=== PATIENT | female | born 1995 | race Caucasian/White ===

== ENCOUNTER 2016-10-19 09:16 | Emergency (ER) | payer MEDICAID ==
[2016-10-19 09:45] VITALS: BP 137/91
[2016-10-19] MEDS ORDERED: HYDROmorphone 1 MG/ML Syringe IM ONE (10:15)
--- NOTE | 2016-10-19 10:26 | EDM.PDOC ---
ED HPI GI/ABDOMINAL - General Chief Complaint: Abdominal Pain Stated Complaint: FELL AT HOME Time Seen by Provider: 10/19/16 09:50 Source: Reports: Patient History Limitations: Reports: No limitations - History of Present Illness INITIAL COMMENTS - FREE TEXT/NARRATIVE: 21-year-old female who was in yesterday with abdominal pain, received an iron infusion for anemia did fine overnight but this morning stumbled forward striking her lower abdomen on the edge of the couch. She had a CT of her abdomen yesterday that showed a enteritis or possible early or partial small bowel obstruction and when she fell she heard a "pop" and now has increased pain. She looks very comfortable however. She continues to have some diarrhea , no blood in the diarrhea, no vomiting. Location: other (Pain is across her lower abdomen) Quality: Reports: cramping, stabbing - Related Data Allergies/ADRs: Allergies Allergy/AdvReac Type Severity Reaction Status Date / Time No Known Allergies Allergy Verified 10/18/16 01:51 Home Meds: Home Meds Acetaminophen [Tylenol JrJoao Vallejo] 640 mg PO Q4H PRN #100 tab.dis 10/13/13 [ Rx] Cyanocobalamin (Vitamin B-12) [Vitamin B-12] 1,000 mcg INJECT DAILY 12/16/13 [ History] Vitamin B Complex [B Complex] 1 each PO DAILY 12/16/13 [History] Ibuprofen 400 mg PO TID PRN 08/28/14 [History] Citalopram [Celexa] 10 mg PO DAILY 10/19/16 [History] Past Medical History Cardiovascular History: Reports: Other (see below) Other Cardiovascular History: hypertension when Other Gastrointestinal History: [place] 2013 [employer] History: Reports: Polycystic Ovaries, Psychiatric History: Reports: Depression Hematologic History: Reports: Anemia, B12 deficiency Immunologic History: Reports: None - Past Surgical History HEENT Surgical History: Reports: Oral surgery Cardiovascular Surgical History: Reports: None GI Surgical History: Reports: Bariatric procedure, Cholecystectomy, EGD Social & Family History - Tobacco Use Smoking Status *Q: Current Every Day Smoker Years of Tobacco use: 1 Packs/Tins Daily: 0.5 Used Tobacco, but Quit: No Second Hand Smoke Exposure: Yes - Caffeine Use Caffeine Use: Reports: Coffee, Tea - Alcohol Use Days Per Week of Alcohol Use: 0 - Recreational Drug Use Recreational Drug Use: No ED ROS GENERAL - Review of Systems Review Of Systems: See Below Constitutional: Denies: fever, chills HEENT: Reports: No symptoms Respiratory: Denies: shortness of breath GI/Abdominal: Reports: Abdominal pain, Diarrhea. Denies: Hematemesis, Hematochezia, Nausea, Vomiting : Reports: no symptoms Skin: Reports: no symptoms Neurological: Reports: no symptoms Psychiatric: Reports: No symptoms ED EXAM, GI/ABD - Physical Exam Exam: See Below Exam Limited By: No limitations General Appearance: alert, no apparent distress Eyes: bilateral: normal appearance (No jaundice) Respiratory/Chest: no respiratory distress, lungs clear GI/Abdominal: hypoactive bowel sounds, guarding (On palpation she is tender across the lower abdomen.). No: distention, rebound Course - Vital Signs Last Recorded V/S: Last Vital Signs Temp 97.8 F 10/19/16 09:50 Pulse 103 H 10/19/16 09:50 Resp 16 10/19/16 09:50 BP 137/91 H 10/19/16 09:50 Pulse Ox 91 L 10/19/16 09:50 - Orders/Labs/Meds Meds: Medications Discontinued Medications Generic Name Dose Route Start Last Admin Trade Name Freq PRN Reason Stop Dose Admin Hydromorphone HCl 1 mg 10/19/16 10:15 10/19/16 10:20 Dilaudid IM 10/19/16 10:16 1 mg ONETIME ONE Administration - Re-Assessments/Exams Free Text/Narrative Re-Assessment/Exam: 10/19/16 10:29 Vitals are all stable and the patient is actually very comfortable unless actually being palpated. I think she may have strained her lower abdominal muscles more than actual injury to the internal organs. I do not see a need to repeat a CT scan, I did discuss her situation with Dr. Moss and she will recheck with him in the next 1 to 2 days. She was given 1 mg of Dilaudid IM, and will increase diet slowly over the next 2 days. Departure - Departure Time of Disposition: 11:27 Disposition: Home, Self-Care 01 Condition: good Clinical Impression: Gastroenteritis Contusion of abdominal wall Qualifiers: Encounter type: initial encounter Qualified Code(s): S30.1XXA - Contusion of abdominal wall, initial encounter Instructions: Viral Gastroenteritis, Adult, [id number], Contusion, Easy-to- Read Referrals: Lyric Ham MD [Primary Care Provider] - Forms: ED Department Discharge Care Plan Goals: Rest today and increase activity as tolerated. Liquid diet may be beneficial for the next 12-24 hours. Return sooner if worsening or concerns. Recheck with Dr. Moss in the next 3 days if not improving satisfactorily.
== END 2016-10-19 11:15 | disposition home or self-care (01) ==
LOC: JP.ED 09:16
DX: K52.9 Noninfective gastroenteritis and colitis, unspecified (principal); S30.1XXA Contusion of abdominal wall, initial encounter; F32.9 Major depressive disorder, single episode, unspecified; F17.210 Nicotine dependence, cigarettes, uncomplicated; Z98.49 Cataract extraction status, unspecified eye; Z90.49 Acquired absence of other specified parts of digestive tract; Z79.899 Other long term (current) drug therapy; W22.8XXA Striking against or struck by other objects, initial encounter
CPT/HCPCS: 96372; 99284; J1170

== ENCOUNTER 2016-11-28 07:43 | Day surgery (SDC) | payer MEDICAID ==
[~2016-11-28 07:43] MED LIST: Midazolam 1 MG/ML 2 ML SDV ONE; Propofol 200 MG/20 ML SDV ONE; fentaNYL 100 MCG/2 ML SDV ONE
[2016-11-28] MEDS ORDERED: Lactated Ringers 1,000 ML IV SCH (08:30)
[2016-11-28] MEDS ORDERED: Cyanocobalamin (Vitamin B12) 1,000 MCG/ML SDV IM ONE (08:30)
[2016-11-28] MEDS ORDERED: fentaNYL 100 MCG/2 ML SDV ONE (08:54)
[2016-11-28] MEDS ORDERED: Propofol 200 MG/20 ML SDV ONE (08:54)
[2016-11-28] MEDS ORDERED: Midazolam 1 MG/ML 2 ML SDV ONE (08:54)
[2016-11-28] MEDS ORDERED: Glycopyrrolate 0.2 MG/ML 2 ML SYRINGE IVPUSH ONE (09:00)
[2016-11-28] MEDS ORDERED: MVI, Adult with Vitamin K 10 ML, Thiamine 200 MG, Chromium/Copper/Mang/Selen/Zn 1 ML in... IV ONE ×4 (09:45)
[2016-11-28] MEDS ORDERED: Pantoprazole 40 MG Vial IVPUSH ONE (10:05)
[2016-11-28] MEDS ORDERED: diphenhydrAMINE 50 MG/ML SDV IVPUSH PRN (10:37)
[2016-11-28] MEDS ORDERED: Famotidine 20 MG/2 ML SDV IV PRN (10:37)
[2016-11-28] MEDS ORDERED: Hydrocortisone Sodium Succinate 100 MG/2 ML SDV IV PRN (10:37)
[2016-11-28] MEDS ORDERED: LORazepam 2 MG/ML MDV IVPUSH ONE (11:15)
[2016-11-28 13:07] VITALS: BP 112/83
--- NOTE | 2016-12-01 17:01 | OR ---
DATE OF PROCEDURE: 11/28/2016 PREOPERATIVE DIAGNOSIS: Epigastric pain, status post gastric bypass. POSTOPERATIVE DIAGNOSIS: Mild pouch gastritis. OPERATIVE PROCEDURE: Upper GI endoscopy with biopsies of gastric pouch for CLOtest. ANESTHESIA: IV sedation. INDICATIONS FOR PROCEDURE: This is a 21-year-old status post Leslie-en-Y gastric bypass in 2013. She presents now with some epigastric discomfort along with some degree of dysphagia referable to the area of the gastric pouch. The plan is to proceed with upper GI endoscopy with biopsies and/or dilation as indicated. Potential risks of the procedure including bleeding and perforation were discussed, and the patient wishes to proceed. DETAILS OF PROCEDURE: The patient was taken to the operating room and placed in a left lateral decubitus position. IV sedation was administered, after which the upper GI endoscope was passed orally through the length of the esophagus into the gastric pouch and from there through the gastrojejunostomy and roughly 20 cm into the Leslie limb. The only abnormality was that of a very mild pouch gastritis with the pouch being slightly edematous and friable. There was otherwise no inflammation in the esophagus EG junction or the gastrojejunostomy. The gastrojejunostomy was mildly patent and there was no stricture formation present. Biopsies were then obtained from the gastric pouch and sent for CLOtest for H. pylori. Minimal bleeding from the biopsy sites was seen and the procedure was then concluded. The patient will be started on some Protonix, both IV and subsequently orally and follow up with Sophia Richter will be in 1 month. The patient also had laboratory exam two days ago to have a very low iron level with a ferritin of 7. She will be given some IV iron today with subsequent dose to be scheduled in roughly a week. Thomas Moss MD /[id number]
== END 2016-11-28 12:25 | disposition home or self-care (01) ==
LOC: JP.SDS 07:43
PROVIDERS: ATTEND Surgery
DX: K29.70 Gastritis, unspecified, without bleeding (principal); Z98.84 Bariatric surgery status
CPT/HCPCS: 43239; 87081; C9113; J2060; J2250; J2704; J3010; J3420; J7030; J7120; Q0138

== ENCOUNTER 2021-04-04 18:52 | Emergency (ER) | payer MEDICAID ==
[2021-04-04 19:05] VITALS: BP 137/75; PULSE 88
[2021-04-04] MEDS ORDERED: Diphtheria,Pertussis(Acell),Tetanus Vaccine 0.5 ML Syringe IM ONE (19:14)
--- NOTE | 2021-04-04 19:18 | EDM.PDOC ---
ED HPI GENERAL MEDICAL PROBLEM - General Chief Complaint: Laceration Stated Complaint: PUNCTURE ON LEG Time Seen by Provider: 04/04/21 19:09 Source of Information: Reports: Patient, Family, RN Notes Reviewed History Limitations: Reports: No Limitations - History of Present Illness INITIAL COMMENTS - FREE TEXT/NARRATIVE: 25-year-old female presents emergency department today complaint of vaginal bleeding, she injured herself while she was getting into her car going across the seat she was just wearing thin leggings unsure if she was poked by something or had a pinch in between the seat large amount of bleeding was appreciated prior to presentation to the emergency department. - Related Data Allergies Allergy/AdvReac Type Severity Reaction Status Date / Time ferumoxytol [From Feraheme] Allergy Difficulty Verified 12/12/16 15:23 Breathing Home Meds: Home Meds Cyanocobalamin (Vitamin B-12) [Vitamin B-12] 1,000 mcg INJECT .Q3WKS 12/16/13 [History] Multivit-Min/Iron Fum/Folic AC [Ogtvc-Pwxuuuo-Qpvaelrm Tablet] 1 each PO BID 11/27/16 [History] Lansoprazole [Prevacid Solutab] 15 mg PO DAILY 12/11/16 [History] Past Medical History Cardiovascular History: Reports: Other (See Below) Other Cardiovascular History: hypertension when Other Gastrointestinal History: RNY 2013 [employer] History: Reports: Polycystic Ovaries, Psychiatric History: Reports: Anxiety, Depression, Panic Attack Hematologic History: Reports: Anemia, B12 Deficiency Immunologic History: Reports: None - Past Surgical History HEENT Surgical History: Reports: Oral Surgery Cardiovascular Surgical History: Reports: None GI Surgical History: Reports: Bariatric Procedure, Cholecystectomy, EGD Female Surgical History: Reports: None Social & Family History - Family History Family Medical History: No Pertinent Family History - Tobacco Use Tobacco Use Status *Q: Current Every Day Tobacco User Years of Tobacco use: 5 Packs/Tins Daily: 0.5 - Caffeine Use Caffeine Use: Reports: Coffee - Recreational Drug Use Recreational Drug Use: Yes Drug Use in Last 12 Months: Yes Recreational Drug Type: Reports: Marijuana/Hashish ED ROS GENERAL - Review of Systems Review Of Systems: See Below Skin: Reports: Wound ED EXAM, SKIN/RASH Exam: See Below Text/Narrative:: Examination of the external vagina in the presence of nursing staff on the left labia majora it is markedly edematous compared to the right there is a small wound consistent with a pinch bleeding is controlled there is a small amount of oozing present but I don't appreciate any laceration that requires repair. Exam Limited By: No Limitations General Appearance: Alert, WD/WN, No Apparent Distress Course - Vital Signs Last Recorded V/S: Last Vital Signs Temp 97.5 F 04/04/21 19:07 Pulse 88 04/04/21 19:07 Resp 14 04/04/21 19:07 BP 137/75 04/04/21 19:07 Pulse Ox 99 04/04/21 19:07 Departure - Departure Time of Disposition: 19:17 Disposition: Home, Self-Care 01 Condition: Fair Clinical Impression: Labial tear Qualifiers: Encounter type: initial encounter Qualified Code(s): S31.41XA - Laceration without foreign body of vagina and vulva, initial encounter - Discharge Information Instructions: Vaginal Laceration Referrals: PCP,None [Primary Care Provider] - Additional Instructions: Continue to use the post care package, bleeding should resolve within the next day or so, please followup with your primary care provider in 3-5 days if not better, please call return to the emergency department with worsening of symptoms. Sepsis Event Note (ED) - Evaluation Sepsis Screening Result: No Definite Risk - Focused Exam Vital Signs: Vital Signs Temp Pulse Resp BP Pulse Ox 04/04/21 19:07 97.5 F 88 14 137/75 99 04/04/21 18:54 97.5 F 88 14 137/75 99 - Assessment/Plan Plan: Assessment Acuity = acute Site and laterality = labial tear Etiology = trauma Manifestations = none Location of injury = Home Lab values = none Plan Treated with care ice packs and mesh panties. Follow-up primary care as needed This note was dictated using [employer] voice recognition software please call with any questions on syntax or grammar.
== END 2021-04-04 19:40 | disposition home or self-care (01) ==
LOC: JP.ED 18:52
DX: S31.41XA Laceration without foreign body of vagina and vulva, initial encounter (principal); Z88.8 Allergy status to other drugs, medicaments and biological substances; Z72.0 Tobacco use; Z79.899 Other long term (current) drug therapy; Z23 Encounter for immunization; X58.XXXA Exposure to other specified factors, initial encounter
CPT/HCPCS: 90471; 90715; 99282

== ENCOUNTER 2021-04-09 10:30 | Emergency (ER) | payer MEDICAID ==
[2021-04-09 10:43] VITALS: BP 134/80; PULSE 96
--- NOTE | 2021-04-09 11:30 | EDM.PDOC ---
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 She had an appointment to see her primary provider yesterday at 4:00 but had to cancel because she got called into work. It was rescheduled for 1030 this morning, but when she went in they said she had no appointment and told her to come to the ER. She thinks she may have had a low-grade fever overnight, the pain seems to be worse today and she is concerned it is getting infected. Onset: Gradual Duration: Day(s): (Worsening for the past 2 or 3 days) Location: Reports: Other (Left labial area) Worsens with: Reports: Movement Associated Symptoms: Reports: Fever/Chills (Low-grade fever overnight, that is resolved) Vaginal Pain Score (Numeric/FACES): 7 - Related Data Allergies Allergy/AdvReac Type Severity Reaction Status Date / Time ferumoxytol [From Feraheme] Allergy Difficulty Verified 04/09/21 10:43 Breathing Home Meds: Home Meds Cyanocobalamin (Vitamin B-12) [Vitamin B-12] 1,000 mcg INJECT .Q3WKS 12/16/13 [History] Multivit-Min/Iron Fum/Folic AC [Oxjpf-Tgmlblk-Biyvhnap Tablet] 1 each PO BID 11/27/16 [History] hydrOXYzine HCL [Atarax] 10 mg PO TID 04/04/21 [History] Past Medical History HEENT History: Reports: None Cardiovascular History: Reports: Other (See Below) Other Cardiovascular History: hypertension when 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: Polycystic Ovaries, Psychiatric History: Reports: Anxiety, Depression, Panic Attack Hematologic History: Reports: Anemia, B12 Deficiency Immunologic History: Reports: None - Past Surgical History HEENT Surgical History: Reports: Oral Surgery Cardiovascular Surgical History: Reports: None GI Surgical History: Reports: Bariatric Procedure, Cholecystectomy, EGD Female Surgical History: Reports: None Social & Family History - Family History Family Medical History: No Pertinent Family History - Tobacco Use Tobacco Use Status *Q: Current Every Day Tobacco User Years of Tobacco use: 5 Packs/Tins Daily: 0.5 - Caffeine Use Caffeine Use: Reports: Coffee - Recreational Drug Use Recreational Drug Use: Yes Recreational Drug Type: Reports: Marijuana/Hashish ED ROS GENERAL - Review of Systems Review Of Systems: See Below Constitutional: Reports: Fever HEENT: Reports: No Symptoms Respiratory: Reports: No Symptoms Cardiovascular: Reports: No Symptoms GI/Abdominal: Denies: Abdominal Pain, Nausea, Vomiting : Reports: Other (Significant left labial pain and swelling) Skin: Reports: Bruising (Some bruising developing around the injury) Neurological: Reports: No Symptoms ED EXAM, RENAL/ - Physical Exam Exam: See Below Exam Limited By: No Limitations General Appearance: Alert, No Apparent Distress Head: Atraumatic Respiratory/Chest: No Respiratory Distress, Lungs Clear (Female) Exam: Other (Exam is otherwise limited to the introitus and groin area. She has a small puncture wound which is closing, no active bleeding overlying a 3 x 1 cm hematoma which is tender to palpation. It is not warm or red) Course - Vital Signs Last Recorded V/S: Last Vital Signs Temp 98.3 F 04/09/21 10:45 Pulse 96 04/09/21 10:45 Resp 16 04/09/21 10:45 BP 134/80 04/09/21 10:45 Pulse Ox 99 04/09/21 10:45 - Re-Assessments/Exams Free Text/Narrative Re-Assessment/Exam: 04/09/21 11:25 Patient has developed a left labial hematoma which may be getting infected. She is put on Augmentin 875 mg twice daily, and I did call the clinic and get her an appointment for 9:45 on Thursday that she can get rechecked if it is not improving with the antibiotics. She can return sooner if needed. Departure - Departure Time of Disposition: 11:45 Disposition: Home, Self-Care 01 Clinical Impression: Hematoma of labia majora - Discharge Information Instructions: Contusion, [id number] Referrals: Malu Mcfadden PA-C [Primary Care Provider] - Forms: ED Department Discharge Care Plan Goals: Take antibiotic twice a day, warm compresses to the area or warm baths may be helpful and recheck on Ozzie if not improving satisfactorily. Return sooner if worsening despite antibiotic. Sepsis Event Note (ED) - Evaluation Sepsis Screening Result: No Definite Risk - Focused Exam Vital Signs: Vital Signs Temp Pulse Resp BP Pulse Ox 04/09/21 10:45 98.3 F 96 16 134/80 99 04/09/21 10:42 98.3 F 96 16 134/80 99
== END 2021-04-09 11:45 | disposition home or self-care (01) ==
LOC: JP.ED 10:30
DX: S31.43XA Puncture wound without foreign body of vagina and vulva, initial encounter (principal); S30.23XA Contusion of vagina and vulva, initial encounter; Z88.8 Allergy status to other drugs, medicaments and biological substances; Z72.0 Tobacco use; X58.XXXA Exposure to other specified factors, initial encounter
CPT/HCPCS: 99282